=== PATIENT | male | born 1970 | race Two or more races ===

== ENCOUNTER 2025-04-12 13:43 | Inpatient (IN) | payer MEDICAID, OTHER ==
[~2025-04-12] VITALS: Ht 172.7 cm; Wt 91.3 kg
--- NOTE | 2025-04-12 14:11 | ECG ---
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
--- NOTE | 2025-04-12 14:23 | ED.PDOC ---
GI ASSESSMENT HPI Comments 55 y/o M, presents to the ED for CC of abdominal pain. 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 Patient relays, that he woke up asymptomatic and then symptoms came on suddenly. Patient denies recent change in diet, diarrhea, fever, chills, or constipation. No other symptoms or modifying factors are present at this time. Chief Complaint: Abdominal Pain Time Seen by MD: 14:00 Reviewed Notes: Nurses Notes, Medications, Allergies Allergies: Coded Allergies: NO KNOWN ALLERGIES (Unverified , 04/12/25) Mode of Arrival: Ambulatory Timing: Hours Duration: Since onset Prehospital treatment: None Vomitus: Watery Stool: Normal Severity: Moderate Recent: None Recent Hx of: None Pain Location: RLQ Modifying Factors: Nothing Associated sign and symptoms: Nausea, Vomiting, Abdominal Pain Past Medical History PAST MEDICAL HISTORY: Denies Surgical History: Denies all surgeries Family History Family History: Unknown Social History Lives In: Home Constitutional: denies: chills, diaphoresis, fatigue, fever, malaise, sweats, weakness, others EENTM: denies: blurred vision, double vision, ear bleeding, ear discharge, ear drainage, ear pain, ear ringing, eye pain, eye redness, hearing loss, mouth pain, mouth swelling, nasal discharge, nose bleeding, nose congestion, nose pain, photophobia, tearing, throat pain, throat swelling, voice changes, others Respiratory: denies: cough, hemoptysis, orthopnea, SOB at rest, shortness of breath, SOB with excertion, stridor, wheezing, others Cardiovascular: denies: chest pain, dizzy spells, diaphoresis, Dyspnea on exertion, edema, irregular heart beat, left arm pain, lightheadedness, palpitations, PND, syncope, others Gastrointestinal: reports: abdominal pain, nausea, vomiting; denies: abdomen distended, blood streaked bowels, constipated, diarrhea, dysphagia, difficulty swallowing, hematemesis, melena, poor appetite, poor fluid intake, rectal bleeding, rectal pain, others Genitourinary: denies: burning, dysuria, flank pain, frequency, hematuria, incontinence, penile discharge, penile sore, pain, testicle pain, testicle swelling, urgency, others Neurological: denies: dizziness, fainting, headache, left sided numbness, left sided weakness, numbness, paresthesia, pre-existing deficit, right sided numbness, right sided weakness, seizure, speech problems, tingling, tremors, weakness, others Musculoskeletal: denies: back pain, gout, joint pain, joint swelling, muscle pain, muscle stiffness, neck pain, others Integumetry: denies: bruises, change in color, change in hair/nails, dryness, laceration, lesions, lumps, rash, wounds, others Allergic/Immunocompromised: denies: Difficulty Healing, Frequent Infections, Hives, Itching, others Endocrine: denies: excessive hunger, excessive sweating, excessive thirst, excessive urination, flushing, intolerance to cold, intolerance to heat, unexplained weight gain, unexplained weight loss, others Psychiatric: denies: anxiety, bipolar disorder, depression, hopeless, panic disorder, schizophrenia, sleepless, suicidal, others All Other Systems: Reviewed and Negative Physical Exam General Appearance: Moderate Distress HEENT: Normal ENT Inspection, Pharynx Normal, TMs Normal Neck: Full Range of Motion, Non-Tender, Normal, Normal Inspection Respiratory: Chest Non-Tender, Lungs Clear, No Accessory Muscle Use, No Respiratory Distress, Normal Breath Sounds Cardiovascular: No Edema, No JVD, No Murmur, No Gallop, Normal Peripheral Pulses, Regular Rate/Rhythm Breast Exam: Deferred Gastrointestinal: Diffuse Genitalia: Deferred Pelvic: Deferred Rectal: Deferred Extremities: No calf tenderness, Normal capillary refill, Normal inspection, Normal range of motion, Non-tender, No pedal edema Musculoskeletal : Apperance: Normal 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 Was a procedure done?: No GI differential Dx Differential Diagnosis: Cholecystitis, Constipation, Diverticular disease, Esophagitis, Gastritis/PUD, Gastroenteritis, Inflammatory BD, UTI, Urolithiasis X-Ray, Labs, Meds, VS Vital Signs Date Time Temp Pulse Resp B/P (MAP) Pulse Ox O2 Delivery O2 Flow Rate FiO2 04/12/25 16:20 190/90 04/12/25 16:00 54 16 190/90 04/12/25 15:26 60 20 99 Room Air* 0 21 04/12/25 15:26 97.5 60 20 162/ (115) 99 97.5 04/12/25 15:19 60 20 162/92 04/12/25 13:58 60 04/12/25 13:45 61 22 214/94 100 Lab Test 04/12/25 15:00 04/12/25 14:43 Range/Units Urine Color Light-yellow Yellow Urine Clarity Clear Clear Urine pH 6.5 5.0-9.0 Urine Specific [place] 1.015 1.001-1.035 Urine Protein Negative Negative Urine Ketones 2+ H Negative Urine Blood 1+ H Negative /uL Urine Nitrite Negative Negative Urine Bilirubin Negative Negative Urine Urobilinogen Normal Negative mg/dL Urine Leukocyte Esterase Negative Negative /uL Urine RBC 39 0 - 3 /hpf Urine Microscopic WBC < 1 0-3 /HPF Urine Squamous Epithelial Cells None seen <5 /hpf Urine Bacteria None seen None Seen /hpf Urine Glucose Trace Normal mg/dL White Blood Count 12.8 H 4.4-10.8 10^3/uL Red Blood Count 5.19 4.5-5.90 10^6/uL Hemoglobin 15.1 13.5-17.5 g/dL Hematocrit 43.6 41.0-53.0 % Mean Corpuscular Volume 84.1 80.0-100.0 fL Mean Corpuscular Hemoglobin 29.1 28.0-32.0 pg Mean Corpuscular Hemoglobin Concent 34.5 32.0-36.0 g/dL Red Cell Distribution Width 13.4 11.8-14.3 % Platelet Count 277 140-450 10^3/uL Mean Platelet Volume 7.9 6.9-10.8 fL Neutrophils (%) (Auto) 81.7 H 37.0-80.0 % Lymphocytes (%) (Auto) 12.3 10.0-50.0 % Monocytes (%) (Auto) 5.6 0.0-12.0 % Eosinophils (%) (Auto) 0.1 0.0-7.0 % Basophils (%) (Auto) 0.3 0.0-2.0 % Neutrophils # (Auto) 10.5 H 1.6-8.6 10 ^3/uL Lymphocytes # (Auto) 1.6 0.4-5.4 10 ^3/uL Monocytes # (Auto) 0.7 0-1.3 10 ^3/uL Eosinophils # (Auto) 0 0-0.8 10 ^3/uL Basophils # (Auto) 0 0-0.2 10 ^3/uL Nucleated Red Blood Cells 0.0 % Sodium Level 142 136-145 mmol/L Potassium Level 3.1 L 3.5-5.1 mmol/L Chloride Level 104 98-107 mmol/L Carbon Dioxide Level 23 20-31 mmol/L Anion Gap 15 5-15 Blood Urea Nitrogen 21 9-23 mg/dL Creatinine 1.34 H 0.700-1.30 mg/dL Glomerular Filtration Rate Calc 62 >90 mL/min BUN/Creatinine Ratio 15.7 10.0-20.0 Serum Glucose 146 H 74-106 mg/dL Calcium Level 9.4 8.7-10.4 mg/dL Current Medications Medications (Trade) Dose Ordered Sig/Dirk Route Start Time Stop Time Status Last Admin Sodium Chloride 1,000 ml @ 1,000 mls/hr Q1H ONCE IV 04/12/25 14:30 04/12/25 15:29 DC 04/12/25 15:18 Hydromorphone HCl (Dilaudid Injection) 1 mg ONCE ONCE IV 04/12/25 14:30 04/12/25 14:31 DC 04/12/25 15:19 Ondansetron HCl (Zofran) 4 mg ONCE ONCE IV 04/12/25 14:30 04/12/25 14:31 DC 04/12/25 15:18 Clonidine HCl (Catapres Tablet) 0.2 mg ONCE ONCE PO 04/12/25 16:15 04/12/25 16:16 DC 04/12/25 16:20 [place] [id number] Ph: [phone] DIAGNOSTIC IMAGING Diagnostic Imaging Report : [id number] Signed PATIENT: ANA LILIA RASMUSSEN ACCT: [id number] UNIT: [id number] : 1970 LOC: ER ROOM / BED: / AGE / SEX: 55 / M ADM STATUS: REG ER SERVICE [id number] ORDERING PHYSICIAN: THUAN FLOWERS MD PROCEDURE(s): ABPL - CT AB PEL WO CON-NO ORAL OR IV REASON: llqpain ORDER NUMBER(s): [id number], ACCESSION NUMBER(s): [id number] Exam: CT CT AB PEL WO CON-NO ORAL OR IV History: llqpain Comparison Study: None TECHNIQUE: Multidetector CT of the abdomen AND PELVIS without IV contrast. Axial, coronal and sagittal multiplanar reformats were obtained from the axial data set by the technologist. Radiation Dose Information: CT Dose: CTDI volume is 15.2 mGy. Dose-length product is 907.59 mGy*cm FINDINGS: Bibasilar atelectasis. Partially visualized heart is unremarkable. Liver, spleen, gallbladder, pancreas and adrenal glands are unremarkable. Right renal lower pole parapelvic cyst measuring up to 2.7 cm. Moderate left [place] nephrosis with mild asymmetric left-sided perirenal and periureteral fat stranding and 2 mm obstructing calculus over the left distal ureter. Mild wall thickening of the mildly distended urinary bladder which may be due to in adequate distention. Prostate is unremarkable. Mild gaseous distention of the distal esophagus. The stomach is unremarkable. Small bowel loops unremarkable. Appendix is unremarkable. Mild wall thickening of the transverse colon. Sigmoid diverticulosis without diverticulitis. Mild rectal wall thickening. No evidence of intraperitoneal free air or free fluid. No evidence of aortic aneurysm or. No significant lymphadenopathy. Small fat containing bilateral inguinal hernias. Tiny fat containing umbilical hernia. The soft tissues unremarkable. No evidence of acute osseous abnormalities. IMPRESSION: Moderate left hydronephrosis with 2 mm obstructing calculus within the left distal ureter. Mild wall thickening of the urinary bladder which may be due to inadequate distention. Correlation with urinalysis is recommended to exclude cystitis. Mild wall thickening of the transverse colon and rectum which may be due to inadequate distention /mild colitis. Additional findings as above. ATED BY: MONSE YI DO DICTATED DATE/TIME: 04/12/25 1500 SIGNED BY: MONSE YI DO SIGNED DATE/TIME: 04/12/25 1500 CC: Patient alert. Complaining of abdominal pain. Vitals stable. Answering questions. CT scan of the abdomen is reveals kidney stone as well as colitis. Establish intravenous access. Was given fluids. Was given pain medication. Was given Rocephin. Was given Flagyl. Blood pressure elevated. Was given clonidine. Explained to the patient. Continue monitoring. Time of 1ST Reevaluation: 14:30 Reevaluation 1ST: Unchanged Patient Education/Counseling: Diagnosis, Treatment Family Education/Counseling: No Family Present SEPSIS Sepsis Screen Date sepsis recognized/suspect: Apr 12, 2025 Time Sepsis recognized/suspect: 1346 Recent Procedure: No On Antibiotic Therapy: No Respiratory Rate >20: Yes Heart Rate >90: No Temp<36 C (96.8 F) or >38.3 C: No SBP <90 or MAP <65 mmHG: No New Acute Mental Status Change: No Is the patient on CPAP, BIPAP,: No Physician Orders Ct Ab Pel Wo Con-No Oral Or Iv (04/12/25 14:18) Vital Signs Date Time Temp Pulse Resp B/P (MAP) Pulse Ox O2 Delivery O2 Flow Rate FiO2 04/12/25 16:20 190/90 04/12/25 16:00 54 16 190/90 04/12/25 15:26 60 20 99 Room Air* 0 21 04/12/25 15:26 97.5 60 20 162/92 (115) 99 97.5 04/12/25 15:19 60 20 162/92 04/12/25 13:58 60 04/12/25 13:45 61 22 214/94 100 Laboratory Tests Test 04/12/25 14:43 White Blood Count 12.8 10^3/uL (4.4-10.8) H Medications Medications Dose Ordered Sig/Dirk Route Start Time Stop Time Status Last Admin Dose Admin Clonidine HCl 0.2 mg ONCE ONCE PO 04/12/25 16:15 04/12/25 16:16 DC 04/12/25 16:20 Hydromorphone HCl 1 mg ONCE ONCE IV 04/12/25 14:30 04/12/25 14:31 DC 04/12/25 15:19 Ondansetron HCl 4 mg ONCE ONCE IV 04/12/25 14:30 04/12/25 14:31 DC 04/12/25 15:18 Sodium Chloride 1,000 ml @ 1,000 mls/hr Q1H ONCE IV 04/12/25 14:30 04/12/25 15:29 DC 04/12/25 15:18 Departure 1 Departure Time of Disposition: 16:13 Impression: Primary Impression: Acute abdominal pain Additional Impressions: Non-specific colitis Hypertensive urgency Kidney stone Disposition: ADMITTED INPATIENT Admit to: Med Surg Condition: Guarded Critical Care Note Critical Care Time?: No Stability Stability form required: No Heart Score Heart Score: Heart Score Response (Comments) Value History N/A 0 EKG N/A 0 Age N/A 0 Risk Factors N/A 0 Troponin N/A 0 Total 0 I personally scribed for THUAN FLOWERS MD ([email or web address]) on 04/12/25 at 14:23. Electronically submitted by Mel Barba ([email or web address]). I personally scribed for THUAN FLOWERS MD ([email or web address]) on 04/12/25 at 15:53. Electronically submitted by Mel Barba ([email or web address]). THUAN FLOWERS MD Apr 12, 2025 14:23
[2025-04-12 14:54] LABS: Hematocrit 43.6 % (41.0-53.0); Hemoglobin 15.1 g/dL (13.5-17.5); Mean Corpuscular Hemoglobin 29.1 pg (28.0-32.0); Mean Corpuscular Volume 84.1 fL (80.0-100.0); Nucleated Red Blood Cells % 0.0 %
[2025-04-12 15:03] LABS: Chloride 104 mmol/L (98-107); Sodium 142 mmol/L (136-145)
--- NOTE | 2025-04-12 15:03 | DVH ---
Exam: CT CT AB PEL WO CON-NO ORAL OR IV History: llqpain Comparison Study: None TECHNIQUE: Multidetector CT of the abdomen AND PELVIS without IV contrast. Axial, coronal and sagitta l multiplanar reformats were obtained from the axial data set by the technologist. Radiation Dose Information: CT Dose: CTDI volume is 15.2 mGy. Dose-length product is 907.59 mGy*cm FINDINGS: Bibasilar atelectasis. Partially visualized heart is unremarkable. Liver, spleen, gallbladder, pancreas and adrenal glands are unremarkable. Right renal lower pole parapelvic cyst measuring up to 2.7 cm. Moderate left [place] nephrosis with mil d asymmetric left-sided perirenal and periureteral fat stranding and 2 mm obstructing calculus over t he left distal ureter. Mild wall thickening of the mildly distended urinary bladder which may be due to inadequate distention. Prostate is unremarkable. Mild gaseous distention of the distal esophagus. The stomach is unremarkable. Small bowel loops unr emarkable. Appendix is unremarkable. Mild wall thickening of the transverse colon. Sigmoid diverticu losis without diverticulitis. Mild rectal wall thickening. No evidence of intraperitoneal free air or free fluid. No evidence of aortic aneurysm or. No significant lymphadenopathy. Small fat containing bilateral inguinal hernias. Tiny fat containing umbilical hernia. The soft tiss ues unremarkable. No evidence of acute osseous abnormalities. IMPRESSION: Moderate left hydronephrosis with 2 mm obstructing calculus within the left distal ureter. Mild wall thickening of the urinary bladder which may be due to inadequate distention. Correlation w ith urinalysis is recommended to exclude cystitis. Mild wall thickening of the transverse colon and rectum which may be due to inadequate distention /mi ld colitis. Additional findings as above.
[2025-04-12 15:04] LABS: Anion Gap 15 (5-15); Calcium 9.4 mg/dL (8.7-10.4); Carbon Dioxide 23 mmol/L (20-31); Potassium 3.1 mmol/L (3.5-5.1)
[2025-04-12 15:09] LABS: BUN/Creatinine Ratio 15.7 (10.0-20.0); Blood Urea Nitrogen 21 mg/dL (9-23); Glucose 146 mg/dL (74-106)
[2025-04-12] MEDS: ONDANSETRON HCL 4 MG/2 ML VIAL IV ONE (15:18)
[2025-04-12] MEDS: SODIUM CHLORIDE 0.9% 1,000 ML IV ONE ×3 (15:18→23:37)
[2025-04-12] MEDS: HYDROmorphone HCL 2 MG/ML VL/or syr IV ONE ×2 (15:19→23:37)
[2025-04-12 15:20] LABS: Urine Protein, UAD Negative (Negative)
[2025-04-12 15:26] VITALS: PULSE 60; RESP 20; O2SAT 99
--- NOTE | 2025-04-12 21:29 | DVHHPRES ---
History of Present Illness Resident Creating Document: OMID BARNARD History of Present Illness Mr. Shearer is a 55 year old male with no prior medical history, who presents today accompanied by his with chief complaint of abdominal pain. The patient refers sudden onset of sharp pain in LLQ, which radiates down towards left groin, 10/10 intensity, associated with chills, diaphoresis, nausea, vomiting, and vomiting, with no aggravating or relieving factors. The patient denies fever, palpitations, hematuria, dysuria, and chest pain. Due to persistence of symptoms he sought medical attention at the emergency department. On evaluation in the ED, the patient was in moderate distress, afebrile, and hypertensive. Initial labs show leukocytosis with neutrophilia, hypokalemia, creatinine 1.34, and hyperglycemia. UA is significant for microscopic hematuria. Abdominal CT shows moderate left hydronephrosis with 2 mm obstructing calculus within the left distal ureter. The patient was started on IV fluids, IV Zofran, and IV antibiotics. He was admitted for further workup and management. Prior medical history: Denies Surgical history: Denies Allergies: Seasonal Social: Denies drug and tobacco use. Refers occasional alcohol use. Lives with his and he feels safe. Review of Systems Review of Systems Constitutional: Refers chills and diaphoresis, Denies weight loss, fever. HEENT: Denies changes in vision and hearing. Respiratory: Denies shortness of breath and cough Cardiovascular: Denies chest discomfort or palpitations GI: Refers abdominal pain, nausea, vomiting, Denies abdominal distention, diarrhea : Denies dysuria and urinary frequency. Musculoskeletal: Denies symptoms Skin: Denies rash and pruritus. Neurological: denies dizziness headache vision or hearing problems Allergies: Coded Allergies: NO KNOWN ALLERGIES (Unverified , 04/12/25) Exam Vital Signs Vital Signs Date Time Temp Pulse Resp B/P (MAP) Pulse Ox O2 Delivery O2 Flow Rate FiO2 04/12/25 19:54 98.0 60 18 197/106 (136) 97 98.0 04/12/25 15:26 Room Air* 0 21 Exam General: The patient alert and oriented in person place and time. Patient following commands, patient in pain and vomiting HEENT: Normocephalic, atraumatic, normal reactive pupils, EOM intact, pink conjunctiva, pink dry mucous membrane Respiratory/pulmonary: Bilateral chest expansion, no pain on palpation of chest wall, clear lungs bilaterally, vesicular murmurs present in almost all lung mo, no associated crackles or wheezes. Cardiovascular: Normal RRR, normal S1 and S2, no murmurs Abdomen: Obese, Abdomen nondistended, normal bowel sounds, soft, pain on palpation of lower left quadrant, no CVA tenderness, no palpable masses. Extremities: No deformities, there is no peripheral edema present at the lower extremities, normal pulses Skin: No rashes or pruritus, there is no sacral edema present at this time. Neurological: Intact cranial nerves with no focal neurologic deficits Labs/Xrays Labs Test 04/12/25 15:00 04/12/25 14:43 Range/Units Urine Color Light-yellow Yellow Urine Clarity Clear Clear Urine pH 6.5 5.0-9.0 Urine Specific [place] 1.015 1.001-1.035 Urine Protein Negative Negative Urine Ketones 2+ H Negative Urine Blood 1+ H Negative /uL Urine Nitrite Negative Negative Urine Bilirubin Negative Negative Urine Urobilinogen Normal Negative mg/dL Urine Leukocyte Esterase Negative Negative /uL Urine RBC 39 0 - 3 /hpf Urine Microscopic WBC < 1 0-3 /HPF Urine Squamous Epithelial Cells None seen <5 /hpf Urine Bacteria None seen None Seen /hpf Urine Glucose Trace Normal mg/dL White Blood Count 12.8 H 4.4-10.8 10^3/uL Red Blood Count 5.19 4.5-5.90 10^6/uL Hemoglobin 15.1 13.5-17.5 g/dL Hematocrit 43.6 41.0-53.0 % Mean Corpuscular Volume 84.1 80.0-100.0 fL Mean Corpuscular Hemoglobin 29.1 28.0-32.0 pg Mean Corpuscular Hemoglobin Concent 34.5 32.0-36.0 g/dL Red Cell Distribution Width 13.4 11.8-14.3 % Platelet Count 277 140-450 10^3/uL Mean Platelet Volume 7.9 6.9-10.8 fL Neutrophils (%) (Auto) 81.7 H 37.0-80.0 % Lymphocytes (%) (Auto) 12.3 10.0-50.0 % Monocytes (%) (Auto) 5.6 0.0-12.0 % Eosinophils (%) (Auto) 0.1 0.0-7.0 % Basophils (%) (Auto) 0.3 0.0-2.0 % Neutrophils # (Auto) 10.5 H 1.6-8.6 10 ^3/uL Lymphocytes # (Auto) 1.6 0.4-5.4 10 ^3/uL Monocytes # (Auto) 0.7 0-1.3 10 ^3/uL Eosinophils # (Auto) 0 0-0.8 10 ^3/uL Basophils # (Auto) 0 0-0.2 10 ^3/uL Nucleated Red Blood Cells 0.0 % Sodium Level 142 136-145 mmol/L Potassium Level 3.1 L 3.5-5.1 mmol/L Chloride Level 104 98-107 mmol/L Carbon Dioxide Level 23 20-31 mmol/L Anion Gap 15 5-15 Blood Urea Nitrogen 21 9-23 mg/dL Creatinine 1.34 H 0.700-1.30 mg/dL Glomerular Filtration Rate Calc 62 >90 mL/min BUN/Creatinine Ratio 15.7 10.0-20.0 Serum Glucose 146 H 74-106 mg/dL Calcium Level 9.4 8.7-10.4 mg/dL SEPSIS Sepsis Screen Date sepsis recognized/suspect: Apr 12, 2025 Time Sepsis recognized/suspect: 1347 Recent Procedure: No On Antibiotic Therapy: No Respiratory Rate >20: Yes Heart Rate >90: No Temp<36 C (96.8 F) or >38.3 C: No SBP <90 or MAP <65 mmHG: No New Acute Mental Status Change: No Is the patient on CPAP, BIPAP,: No Physician Orders Ct Ab Pel Wo Con-No Oral Or Iv (04/12/25 14:18) Admit (04/12/25 21:20) Allergies (04/12/25 21:20) Code Status (04/12/25 21:20) Complete Blood Count (04/13/25 04:00) Npo (Nothing By Mouth) Diet (04/13/25 Breakfast) Condition: Stable (04/12/25 21:20) Stat Ekg For Chest Pain (04/12/25 21:20) Notify Md Of Changes From Base (04/12/25 21:20) Emergency Dysrhythmia Protocol (04/12/25 21:20) Rhythm Strips Once Every Shift (04/12/25 21:20) Blood Culture (04/12/25 21:20) Hepatic Panel (04/12/25 21:20) Hemoglobin A1c (04/12/25 21:20) * Urology Consult (04/12/25 21:20) Strain All Urine For Stones (04/12/25 21:20) Lactic Acid W/ Reflex Order (04/12/25 21:20) Phosphorus (04/12/25 21:20) Thyroid Stimulating Hormone (04/12/25 21:20) Vitamin D, 25-Hydroxy (04/12/25 21:20) Vitamin B12 (04/12/25 21:20) Magnesium (04/12/25 21:20) PTPTT (04/12/25 21:20) Tamsulosin Hydrochloride (Flomax) (04/13/25 18:00) Tamsulosin Hydrochloride (Flomax) (04/12/25 21:30) Ceftriaxone Ivpb Rocephin (04/12/25 21:30) Ceftriaxone Ivpb Rocephin (04/13/25 09:00) NS (04/12/25 21:30) NS (04/12/25 21:30) Hydromorphone Injection (Dilaudid Inject (04/12/25 21:30) Hydromorphone Injection (Dilaudid Inject (04/12/25 21:30) Sequential Compression Device (04/12/25 21:29) Vital Signs Date Time Temp Pulse Resp B/P (MAP) Pulse Ox O2 Delivery O2 Flow Rate FiO2 04/12/25 19:54 98.0 60 18 197/106 (136) 97 98.0 04/12/25 16:20 190/90 04/12/25 16:00 54 16 190/90 04/12/25 15:26 60 20 99 Room Air* 0 21 04/12/25 15:26 97.5 60 20 162/92 (115) 99 97.5 04/12/25 15:19 60 20 162/92 04/12/25 13:58 60 04/12/25 13:45 61 22 214/94 100 Laboratory Tests Test 04/12/25 14:43 White Blood Count 12.8 10^3/uL (4.4-10.8) H Medications Medications Dose Ordered Sig/Dirk Route Start Time Stop Time Status Last Admin Dose Admin Clonidine HCl 0.2 mg ONCE ONCE PO 04/12/25 16:15 04/12/25 16:16 DC 04/12/25 16:20 0.2 MG Hydromorphone HCl 1 mg ONCE ONCE IV 04/12/25 14:30 04/12/25 14:31 DC 04/12/25 15:19 1 MG Ondansetron HCl 4 mg ONCE ONCE IV 04/12/25 14:30 04/12/25 14:31 DC 04/12/25 15:18 4 MG Sodium Chloride 1,000 ml @ 1,000 mls/hr Q1H ONCE IV 04/12/25 14:30 04/12/25 15:29 DC 04/12/25 15:18 1,000 MLS/HR Assessment/Plan Assessment/Plan Assessment and Plan: Sepsis secondary to Complicated UTI likely secondary to ureterolithiasis - Blood cultures ordered - NS 1000 cc bolus x 3 - Ceftriaxone 1 g IV daily - Blood cultures have been ordered - Urine culture has been ordered - Lactic Acid: 2.7 -> 2.9 Intractable abdominal pain due to Obstructing ureterolithiasis with bilateral hydronephrosis Intractable nausea and vomiting due to above - Abdominal CT: Moderate left hydronephrosis with 2 mm obstructing calculus within the left distal ureter. - Renal ultrasound: Mild right and moderate hydronephrosis - Roach catheter placement - Urology has been consulted - IV fluids - NS maintenance 75 cc/hr - Tamsulosin 0.4 mg p.o. 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 Camarena Goals of care were discussed with the patient and his at bedside for over 28 minutes. Full code. Plan discussed with: Patient, Spouse, Other My Orders Orders - OMID BANRARD RESIDENT Procedure Category Date Status Time Admit ADMIT 04/12/25 Transmitted 21:20 Allergies MISBAH 10/16/25 Transmitted 21:20 Code Status CODE 04/12/25 Transmitted 21:20 Complete Blood Count LAB 04/13/25 Verified 04:00 Npo (Nothing By DIET 04/13/25 Transmitted Mouth) Diet Breakfast Condition: Stable [facility] 04/12/25 Transmitted 21:20 Stat Ekg For Chest MISBAH 04/12/25 Transmitted Pain 21:20 Notify Md Of Changes [facility] 04/12/25 Transmitted From Base 21:20 Emergency Dysrhythmia [facility] 04/12/25 Transmitted Protocol 21:20 Rhythm Strips Once [facility] 04/12/25 Transmitted Every Shift 21:20 Blood Culture PATIENCE 04/12/25 Transmitted 21:20 Hepatic Panel LAB 04/12/25 Transmitted 21:20 Hemoglobin A1c LAB 04/12/25 Transmitted 21:20 * Urology Consult CONS 04/12/25 Transmitted 21:20 Strain All Urine For [facility] 04/12/25 Transmitted Stones 21:20 Lactic Acid W/ Reflex LAB 04/12/25 Transmitted Order 21:20 Phosphorus LAB 04/12/25 Transmitted 21:20 Thyroid Stimulating LAB 04/12/25 Transmitted Hormone 21:20 Vitamin D, 25-Hydroxy LAB 04/12/25 Transmitted 21:20 Vitamin B12 LAB 04/12/25 Transmitted 21:20 Magnesium LAB 04/12/25 Transmitted 21:20 PTPTT LAB 04/12/25 Transmitted 21:20 Tamsulosin PHA 04/13/25 Transmitted Hydrochloride (Flomax) 18:00 Tamsulosin PHA 04/12/25 Transmitted Hydrochloride (Flomax) 21:30 Ceftriaxone Ivpb PHA 04/12/25 Transmitted Rocephin 21:30 Ceftriaxone Ivpb PHA 04/13/25 Transmitted Rocephin 09:00 NS PHA 04/12/25 Transmitted 21:30 NS PHA 04/12/25 Transmitted 21:30 Hydromorphone PHA 04/12/25 Transmitted Injection (Dilaudid 21:30 Hydromorphone PHA 04/12/25 Transmitted Injection (Dilaudid 21:30 Sequential [facility] 04/12/25 Verified Compression Device 21:29 Date of Service: Apr 12, 2025 Billing Provider: SHANNON CAMARENA MD Common Visit Codes: 70943-[id number] INP/OBS CARE (HIGH) Secondary Visit Codes: [id number] CARE PLAN 30 MINUTES OMID BARNARD RESIDENT Apr 12, 2025 21:29 BOOM FLEMING RESIDENT Apr 13, 2025 05:28
[2025-04-12] MEDS ORDERED: HYDROmorphone HCL 2 MG/ML VL/or syr IV PRN (21:30)
[2025-04-12] MEDS ORDERED: SODIUM CHLORIDE 0.9% 1,000 ML IV SCH (21:30)
[2025-04-12 22:11] LABS: Albumin 4.8 g/dL (3.2-4.8); Alkaline Phosphatase 98.0 U/L (46-116); Bilirubin, Direct 0.2 mg/dL (<0.3); Bilirubin, Total 0.5 mg/dL (0.2-1.0); Magnesium 2.0 mg/dL (1.6-2.6); Total Protein 7.4 g/dL (5.7-8.2)
[2025-04-12 22:14] LABS: Alanine Aminotransferase 50.0 U/L (7-40)
[2025-04-12 23:02] LABS: INR 1.14 (0.9-1.15); Partial Thromboplastin Time 25.6 SEC (24.5-34.5); Prothrombin Time 11.9 sec (9.3-11.8)
--- NOTE | 2025-04-12 23:05 | DVH ---
RENAL ULTRASOUND CLINICAL HISTORY: L Hydronephrosis TECHNIQUE: Multiple grayscale ultrasound images were obtained through the kidneys and urinary bladder . COMPARISON: CT abdomen and pelvis from same day FINDINGS: Right kidney: Measures 10.6 cm. Mild hydronephrosis. Left kidney: Measures 12.2 cm. Moderate hydronephrosis. Urinary bladder: Unremarkable. Prevoid volume is 67.3 ML. The right ureteral jet is seen. The left ur eteral jet was not visualized. IMPRESSION: Mild right and moderate left hydronephrosis.
[2025-04-12 23:15] LABS: Lactic Acid w/Reflex 2.7 mmol/L (0.4-2.0)
[2025-04-12] MEDS: hydrALAZINE HCL 20 MG/ML VL IV ONE (23:36)
[2025-04-12] MEDS: TAMSULOSIN HYDROCHLORIDE 0.4 MG CAP PO ONE (23:46)
[2025-04-13] VITALS (12 sets, daily range): BP systolic 139–162; BP diastolic 64–100; PULSE 67–97; RESP 12–18; TEMP 98–98.6; O2SAT 94–98
[2025-04-13] MEDS: POTASSIUM CHLORIDE 60 MEQ, LIDOCAINE 1% (LOCAL ANESTH.) 6 ML in SODIUM CHL 0.9% 500 ML IV ONE (00:49)
[2025-04-13] MEDS: SODIUM CHLORIDE 0.9% 500 ML IV ONE (05:30)
[2025-04-13 06:05] LABS: Hematocrit 42.4 % (41.0-53.0); Hemoglobin 14.7 g/dL (13.5-17.5); Mean Corpuscular Hemoglobin 29.0 pg (28.0-32.0); Mean Corpuscular Volume 83.5 fL (80.0-100.0); Nucleated Red Blood Cells % 0.0 %
[2025-04-13 06:24] LABS: Alanine Aminotransferase 40 U/L (7-40); Albumin 4.6 g/dL (3.2-4.8); Alkaline Phosphatase 90 U/L (46-116); Anion Gap 15 (5-15); BUN/Creatinine Ratio 12.9 (10.0-20.0); Bilirubin, Total 0.6 mg/dL (0.2-1.0); Blood Urea Nitrogen 15 mg/dL (9-23); Calcium 8.8 mg/dL (8.7-10.4); Carbon Dioxide 21 mmol/L (20-31); Chloride 105 mmol/L (98-107); Glucose 127 mg/dL (74-106); Potassium 3.8 mmol/L (3.5-5.1); Sodium 141 mmol/L (136-145); Total Protein 7.3 g/dL (5.7-8.2)
[2025-04-13] MEDS: ONDANSETRON HCL 4 MG/2 ML VIAL IV PRN (08:49)
[2025-04-13] MEDS: HYDROmorphone HCL 2 MG/ML VL/or syr IV PRN (08:50)
[2025-04-13 10:16] LABS: Opiate Scree,Urine Neg (NEGATIVE)
[2025-04-13 10:17] LABS: Amphetamine Screen, Urine Neg (NEGATIVE); Barbiturate Scree,Urine Neg (NEGATIVE); Benzodiazephine Screen, Urine Neg (NEGATIVE); Cannabinoid Screen, Urine Neg (NEGATIVE); Cocaine Screen, Urine Neg (NEGATIVE); Phencyclidine Screen, Urine Neg (NEGATIVE)
--- NOTE | 2025-04-13 10:21 | DVHINCON2 ---
Date of service: Apr 13, 2025 Referring Physician Hospitalist Reason for Consultation Moderate left hydronephrosis 2 mm obstructing left ureteral stone Azotemia History of Present Illness 55 y/o M, presents to the ED for CC of abdominal pain. Patient states, he has been experencing sudden RLQ abdominal pain with associated nausea and vomiting [id number] [employer]ING[employer]. Patient relays, that he woke up asymptomatic and then symptoms came on suddenly. Patient denies recent change in diet, diarrhea, fever, chills, or constipation. No other symptoms or modifying factors are present at this time. Chief Complaint: Abdominal Pain Reviewed Notes: Nurses Notes, Medications, Allergies Allergies: Coded Allergies: NO KNOWN ALLERGIES (Unverified , 04/12/25) Mode of Arrival: Ambulatory Timing: Hours Duration: Since onset Prehospital treatment: None Vomitus: Watery Stool: Normal Severity: Moderate Recent: None Recent Hx of: None Pain Location: RLQ Modifying Factors: Nothing Associated sign and symptoms: Nausea, Vomiting, Abdominal Pain Past Medical History Denies Allergies: Coded Allergies: NO KNOWN ALLERGIES (Unverified , 04/12/25) Current Medications Current Medications Medications (Trade) Dose Ordered Sig/Dirk Route PRN Reason Start Time Stop Time Status Last Admin Tamsulosin HCl (Flomax) 0.4 mg QPM PO 04/13/25 18:00 Ceftriaxone Sodium 50 ml @ 100 mls/hr Q24H IV 04/13/25 21:00 Sodium Chloride 1,000 ml @ 75 mls/hr [id number] IV 04/12/25 21:30 04/13/25 05:23 DC Hydromorphone HCl (Dilaudid Injection) 0.25 mg Q4HPRN PRN IV MODERATE PAIN (4-6 PAIN SCALE) 04/12/25 21:30 04/13/25 05:22 DC Ondansetron HCl (Zofran) 4 mg Q4HPRN PRN IV NAUSEA / VOMITING 04/12/25 21:45 04/13/25 08:49 Hydromorphone HCl (Dilaudid Injection) 0.5 mg Q4HPRN PRN IV SEVERE PAIN (7-10 PAIN SCALE) 04/13/25 05:30 04/13/25 08:50 Sodium Chloride 1,000 ml @ 100 mls/hr Q10H IV 04/13/25 05:30 Lisinopril (Zestril Tablet) 5 mg DAILY PO 04/13/25 10:00 Review of Systems Constitutional: denies: chills, diaphoresis, fatigue, fever, malaise, sweats, weakness, others EENTM: denies: blurred vision, double vision, ear bleeding, ear discharge, ear drainage, ear pain, ear ringing, eye pain, eye redness, hearing loss, mouth pain, mouth swelling, nasal discharge, nose bleeding, nose congestion, nose pain, photophobia, tearing, throat pain, throat swelling, voice changes, others Respiratory: denies: cough, hemoptysis, orthopnea, SOB at rest, shortness of breath, SOB with excertion, stridor, wheezing, others Cardiovascular: denies: chest pain, dizzy spells, diaphoresis, Dyspnea on exertion, edema, irregular heart beat, left arm pain, lightheadedness, palpitations, PND, syncope, others Gastrointestinal: reports: abdominal pain, nausea, vomiting; denies: abdomen distended, blood streaked bowels, constipated, diarrhea, dysphagia, difficulty swallowing, hematemesis, melena, poor appetite, poor fluid intake, rectal bleeding, rectal pain, others Genitourinary: denies: burning, dysuria, flank pain, frequency, hematuria, incontinence, penile discharge, penile sore, pain, testicle pain, testicle swelling, urgency, others Neurological: denies: dizziness, fainting, headache, left sided numbness, left sided weakness, numbness, paresthesia, pre-existing deficit, right sided numbness, right sided weakness, seizure, speech problems, tingling, tremors, weakness, others Musculoskeletal: denies: back pain, gout, joint pain, joint swelling, muscle pain, muscle stiffness, neck pain, others Integumetry: denies: bruises, change in color, change in hair/nails, dryness, laceration, lesions, lumps, rash, wounds, others Allergic/Immunocompromised: denies: Difficulty Healing, Frequent Infections, Hives, Itching, others Endocrine: denies: excessive hunger, excessive sweating, excessive thirst, excessive urination, flushing, intolerance to cold, intolerance to heat, unexplained weight gain, unexplained weight loss, others Psychiatric: denies: anxiety, bipolar disorder, depression, hopeless, panic disorder, schizophrenia, sleepless, suicidal, others All Other Systems: Reviewed and Negative Vital Signs Vital Signs Date Time Temp Pulse Resp B/P (MAP) Pulse Ox O2 Delivery O2 Flow Rate FiO2 04/13/25 08:50 96 20 154/90 04/13/25 08:00 95 Room Air* 0 21 04/13/25 08:00 98.2 98.2 Physical Exam General Appearance: Moderate Distress HEENT: Normal ENT Inspection, Pharynx Normal, TMs Normal Neck: Full Range of Motion, Non-Tender, Normal, Normal Inspection Respiratory: Chest Non-Tender, Lungs Clear, No Accessory Muscle Use, No Respiratory Distress, Normal Breath Sounds Cardiovascular: No Edema, No JVD, No Murmur, No Gallop, Normal Peripheral Pulses, Regular Rate/Rhythm Breast Exam: Deferred Gastrointestinal: Diffuse Genitalia: Deferred Pelvic: Deferred Rectal: Deferred Extremities: No calf tenderness, Normal capillary refill, Normal inspection, Normal range of motion, Non-tender, No pedal edema Musculoskeletal : Apperance: Normal Neurologic: Alert, cigarette vendor II-XII nml as Tested, No Motor Deficits, Normal Affect, Normal Mood, No Sensory Deficits Cerebellar Function: Normal Reflexes: Normal Skin: Dry, Normal Color, Warm Peripheral Pulses: 3+ Radial (R), 3+ Radial (L) Lymphatic: No Adenopathy Labs/Diagnostic Data Labs Test 04/13/25 09:36 04/13/25 06:42 04/13/25 05:22 04/12/25 21:57 Range/Units Lactic Acid Level 0.9 0.4-2.0 mmol/L White Blood Count 13.7 H 4.4-10.8 10^3/uL Red Blood Count 5.08 4.5-5.90 10^6/uL Hemoglobin 14.7 13.5-17.5 g/dL Hematocrit 42.4 41.0-53.0 % Mean Corpuscular Volume 83.5 80.0-100.0 fL Mean Corpuscular Hemoglobin 29.0 28.0-32.0 pg Mean Corpuscular Hemoglobin Concent 34.8 32.0-36.0 g/dL Red Cell Distribution Width 13.5 11.8-14.3 % Platelet Count 268 140-450 10^3/uL Mean Platelet Volume 8.4 6.9-10.8 fL Neutrophils (%) (Auto) 82.4 H 37.0-80.0 % Lymphocytes (%) (Auto) 7.9 L 10.0-50.0 % Monocytes (%) (Auto) 9.6 0.0-12.0 % Eosinophils (%) (Auto) 0.0 0.0-7.0 % Basophils (%) (Auto) 0.1 0.0-2.0 % Neutrophils # (Auto) 11.3 H 1.6-8.6 10 ^3/uL Lymphocytes # (Auto) 1.1 0.4-5.4 10 ^3/uL Monocytes # (Auto) 1.3 0-1.3 10 ^3/uL Eosinophils # (Auto) 0 0-0.8 10 ^3/uL Basophils # (Auto) 0 0-0.2 10 ^3/uL Nucleated Red Blood Cells 0.0 % Sodium Level 141 136-145 mmol/L Potassium Level 3.8 3.5-5.1 mmol/L Chloride Level 105 98-107 mmol/L Carbon Dioxide Level 21 20-31 mmol/L Anion Gap 15 5-15 Blood Urea Nitrogen 15 9-23 mg/dL Creatinine 1.16 0.700-1.30 mg/dL Glomerular Filtration Rate Calc 74 >90 mL/min BUN/Creatinine Ratio 12.9 10.0-20.0 Serum Glucose 127 H 74-106 mg/dL Calcium Level 8.8 8.7-10.4 mg/dL Total Bilirubin 0.6 0.2-1.0 mg/dL Aspartate Amino Transferase (AST) 31 13-40 U/L Alanine Aminotransferase (ALT) 40 7-40 U/L Alkaline Phosphatase 90 46-116 U/L Total Protein 7.3 5.7-8.2 g/dL Albumin 4.6 3.2-4.8 g/dL Prothrombin Time 11.9 H 9.3-11.8 sec Prothrombin Time INR 1.14 0.9-1.15 Activated Partial Thromboplast Time 25.6 24.5-34.5 SEC Test 04/12/25 15:00 04/12/25 14:43 Range/Units Urine Color Light-yellow Yellow Urine Clarity Clear Clear Urine pH 6.5 5.0-9.0 Urine Specific [place] 1.015 1.001-1.035 Urine Protein Negative Negative Urine Ketones 2+ H Negative Urine Blood 1+ H Negative /uL Urine Nitrite Negative Negative Urine Bilirubin Negative Negative Urine Urobilinogen Normal Negative mg/dL Urine Leukocyte Esterase Negative Negative /uL Urine RBC 39 0 - 3 /hpf Urine Microscopic WBC < 1 0-3 /HPF Urine Squamous Epithelial Cells None seen <5 /hpf Urine Bacteria None seen None Seen /hpf Urine Glucose Trace Normal mg/dL Hemoglobin A1c 5.4 <5.7 % A1C Phosphorus Level 2.7 2.4-5.1 mg/dL Magnesium Level 2.0 1.6-2.6 mg/dL Direct Bilirubin 0.2 <0.3 mg/dL Vitamin B12 Level 651 211-911 pg/mL Vitamin D 25-Hydroxy 30.4 30.0-100 ng/mL Thyroid Stimulating Hormone (TSH) 2.94 0.55-4.78 uIU/mL PATIENT: ANA LILIA RASMUSSEN ACCT: [id number] UNIT: [id number] : 1970 LOC: ER ROOM / BED: / AGE / SEX: 55 / M ADM STATUS: REG ER SERVICE [id number] ORDERING PHYSICIAN: THUAN FLOWERS MD PROCEDURE(s): ABPL - CT AB PEL WO CON-NO ORAL OR IV REASON: llqpain ORDER NUMBER(s): [id number], ACCESSION NUMBER(s): [id number] Exam: CT CT AB PEL WO CON-NO ORAL OR IV History: llqpain Comparison Study: None TECHNIQUE: Multidetector CT of the abdomen AND PELVIS without IV contrast. Axial, coronal and sagittal multiplanar reformats were obtained from the axial d mackenzie set by the technologist. Radiation Dose Information: CT Dose: CTDI volume is 15.2 mGy. Dose-length product is 907.59 mGy*cm FINDINGS: Bibasilar atelectasis. Partially visualized heart is unremarkable. Liver, spleen, gallbladder, pancreas and adrenal glands are unremarkable. Right renal lower pole parapelvic cyst measuring up to 2.7 cm. Moderate left Burdett nephrosis with mild asymmetric left-sided perirenal and periureteral fat stranding and 2 mm obstructing calculus over the left distal ureter. Mild wall thickening of the mildly distended urinary bladder which may be due to inadequate distention. Prostate is unremarkable. Mild gaseous distention of the distal esophagus. The stomach is unremarkable. Small bowel loops unremarkable. Appendix is unremarkable. Mild wall thickening of the transverse colon. Sigmoid diverticulosis without diverticulitis. Mild rectal wall thickening. No evidence of intraperitoneal free air or free fluid. No evidence of aortic aneurysm or. No significant lymphadenopathy. Small fat containing bilateral inguinal hernias. Tiny fat containing umbilical hernia. The soft tissues unremarkable. No evidence of acute osseous abnormalities. IMPRESSION: Moderate left hydronephrosis with 2 mm obstructing calculus within the left distal ureter. Mild wall thickening of the urinary bladder which may be due to inadequate distention. Correlation with urinalysis is recommended to exclude cystitis. Mild wall thickening of the transverse colon and rectum which may be due to inadequate distention /mild colitis. Additional findings as above. ATED BY: MONSE YI DO DICTATED DATE/TIME: 04/12/25 1500 SIGNED BY: MONSE YI DO SIGNED DATE/TIME: 04/12/25 1500 CC: Assessment Left hydronephrosis due to 2 mm left mid ureteral stone Azotemia Microhematuria Plan/Recommendation Left PNT placement per IR service Expulsive measures Plan discussed with: Patient, Spouse, Other LACHO RODRIGUEZ MD Apr 13, 2025 10:21
[2025-04-13] MEDS: LISINOPRIL 5 MG TAB PO SCH (11:52)
[2025-04-13] MEDS: MANNITOL FTV 25% 12.5 GM/50 ML 50 ML IV ONE (12:12)
[2025-04-13] MEDS: SODIUM CHLORIDE 0.9% 1,000 ML IV SCH (12:28)
[2025-04-13] MEDS: IODIXANOL 320MG/ML 100ML BTL IV ONE (12:31)
[2025-04-13] MEDS: fentaNYL CITRATE 100 MCG/2 ML VL ONE (12:43)
[2025-04-13] MEDS: LIDOCAINE 2%HCL (LOCAL ANESTH.) INJ 20ML MDV ONE (12:43)
[2025-04-13] MEDS: MIDAZOLAM HCL 2MG/2ML 2ml VIAL (1mg/ml) ONE (12:43)
--- NOTE | 2025-04-13 14:30 | DVHPNRES ---
Progress Note Date Seen: Apr 13, 2025 Resident Creating Document: GAUTAM RANGEL RESIDENT Medical Necessity Reason Pt with a Central, PICC or Fol: No Subjective Review of Systems Mr. Shearer is a 55 year old male with no prior medical history, who presents today accompanied by his with chief complaint of abdominal pain. The patient refers sudden onset of sharp pain in LLQ, which radiates down towards left groin, 10/10 intensity, associated with chills, diaphoresis, nausea, vomiting, and vomiting, with no aggravating or relieving factors. The patient denies fever, palpitations, hematuria, dysuria, and chest pain. Due to persistence of symptoms he sought medical attention at the emergency department. On evaluation in the ED, the patient was in moderate distress, afebrile, and hypertensive. Initial labs show leukocytosis with neutrophilia, hypokalemia, creatinine 1.34, and hyperglycemia. UA is significant for microscopic hematuria. Abdominal CT shows moderate left hydronephrosis with 2 mm obstructing calculus within the left distal ureter. The patient was started on IV fluids, IV Zofran, and IV antibiotics. He was admitted for further workup and management. Prior medical history: Denies Surgical history: Denies Allergies: Seasonal Social: Denies drug and tobacco use. Refers occasional alcohol use. Lives with his and he feels safe. Patient was seen and examined at bedside. Overnight events were reviewed. The patient reports feeling hungry and improvement in his pain from admission. He denies any chest pain, shortness of breath, fever or any other complaints. Objective vital signs Vital Sign Date Time Temp Pulse Resp B/P (MAP) Pulse Ox O2 Delivery O2 Flow Rate FiO2 04/13/25 14:05 98.4 71 12 154/90 (111) 94 98.4 04/13/25 08:00 Room Air* 0 21 Total Intake and Output 04/12/25 04/12/25 04/13/25 15:00 23:00 07:00 Intake Total 1000 ml Output Total 2200 ml Balance 1000 ml -2200 ml medications Current Medications Medications Dose Ordered Sig/Dirk Route Start Time Stop Time Status Last Admin Dose Admin Tamsulosin HCl 0.4 mg QPM PO 04/13/25 18:00 Ceftriaxone Sodium 50 ml @ 100 mls/hr Q24H IV 04/13/25 21:00 Ondansetron HCl 4 mg Q4HPRN PRN IV 04/12/25 21:45 04/13/25 08:49 4 MG Hydromorphone HCl 0.5 mg Q4HPRN PRN IV 04/13/25 05:30 04/13/25 08:50 0.5 MG Sodium Chloride 1,000 ml @ 100 mls/hr Q10H IV 04/13/25 05:30 Lisinopril 5 mg DAILY PO 04/13/25 10:00 04/13/25 11:52 5 MG Examination Exam General: The patient alert and oriented in person place and time. Patient following commands, patient in pain and vomiting HEENT: Normocephalic, atraumatic, normal reactive pupils, EOM intact, pink conjunctiva, pink dry mucous membrane Respiratory/pulmonary: Bilateral chest expansion, no pain on palpation of chest wall, clear lungs bilaterally, vesicular murmurs present in almost all lung mo, no associated crackles or wheezes. Cardiovascular: Normal RRR, normal S1 and S2, no murmurs Abdomen: Obese, Abdomen nondistended, normal bowel sounds, soft, pain on palpation of lower left quadrant, no CVA tenderness, no palpable masses. Extremities: No deformities, there is no peripheral edema present at the lower extremities, normal pulses Skin: No rashes or pruritus, there is no sacral edema present at this time. Neurological: Intact cranial nerves with no focal neurologic deficits laboratory and microbiology Laboratory Tests 04/13/25 05:22 Test 04/13/25 05:22 Range/Units Serum Glucose 127 H 74-106 mg/dL Labs and/or images reviewed: Labs reviewed by me, Image(s) reviewed by me Problem List/Assessment/Plan Problem List/Assessment/Plan Sepsis secondary to Complicated UTI likely secondary to ureterolithiasis - Blood cultures ordered - NS 1000 cc bolus x 3 - Ceftriaxone 1 g IV daily - Blood cultures have been ordered - Urine culture has been ordered - Lactic Acid: 2.7 -> 2.9 Intractable abdominal pain due to Obstructing ureterolithiasis with bilateral hydronephrosis Intractable nausea and vomiting due to above - Abdominal CT: Moderate left hydronephrosis with 2 mm obstructing calculus within the left distal ureter. -urology consult appreciated, left PNT placement per IR service, expulsive measures. -higher consulted for left PCN tube placement - Renal ultrasound: Mild right and moderate hydronephrosis - Roach catheter placement - Urology has been consulted - IV fluids - NS maintenance 75 cc/hr - Tamsulosin 0.4 mg p.o. 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 Full code. Plan discussed with: Patient, Other (RM) Date of Service: Apr 13, 2025 Billing Provider: MAGUE CHUNG MD Common Visit Codes: [id number] INP/OBS CARE(HIGH) GAUTAM RANGEL RESIDENT Apr 13, 2025 14:30 MAGUE CHUNG MD Apr 13, 2025 23:56
--- NOTE | 2025-04-13 15:00 | DVH ---
PROCEDURE: Right NEPHROSTOMY TUBE PLACEMENT HISTORY: Left flank pain. UTI. Obstructing distal ureteral stone. OPERATORS: Daniel Manzo DOCUMENTATION: Informed consent was obtained and a procedural time out was performed. SEDATION: Moderate sedation was utilized during the procedure. The patient received benzodiazepines a nd opioids, the dosing of which was documented in the patient s permanent medical record. Pre-sedatio n history and evaluation revealed no contraindications to sedation. The patient s level of consciousn ess and physiologic status was monitored continuously by the physician and nursing staff throughout t he procedure. Total intra-service moderate sedation time was 50 minutes. FLUORO TIME: 11.1 min Dose: 1830 TECHNIQUE: The skin over the patient's back/flank was sterilely prepped, draped, and infiltrated with 1% lidocaine. A 22-gauge INRAD needle was used to access a lower pole renal calyx under real-time ul trasound guidance with an image archived in the PACS. There was a small amount of clear fluid return . 2 cc of contrast was injected through the needle which opacified a parapelvic cyst. Severeal other similar structures were targeted and 1-2 cc of contrast was injected with no opacification of collec ting system. Next, the decision was made to advance the needle into the renal pelvis. 5 cc of contras t was injected into the collecting system after clear return of urine which demonstarted no significa nt hydronephrosis but no passage of contrast into the urinary bladder. Then, a second access was obta ined through lower pole calyx under fluoroscopy guidance without difficulty. Dilute contrast was inje cted to confirm positioning. A micropuncture set was used to gain definitive access to the calyx. A g uidewire was coiled in the renal pelvis and an 8 polish pigtail was placed under fluoroscopy. The cat heter was injected with contrast and a spot radiograph obtained. The catheter was sutured and stat lo cked in place and connected to gravity drainage. FINDINGS: There is no significant calyceal dilatation. mild dilatation of the renal pelvis with no p assage of contrast into the bladder. The final images demonstrate 8F pigtail catheter to be in satisf actory position. No immediate complications were encountered. IMPRESSION: 1. SUCCESSFUL 8F LEFT NEPHROSTOMY TUBE PLACEMENT.
--- NOTE | 2025-04-13 15:01 | DVH ---
PROCEDURE: LEFT NEPHROSTOMY TUBE PLACEMENT HISTORY: Left flank pain. UTI. Obstructing distal ureteral stone. OPERATORS: Daniel Manzo DOCUMENTATION: Informed consent was obtained and a procedural time out was performed. SEDATION: Moderate sedation was utilized during the procedure. The patient received benzodiazepines a nd opioids, the dosing of which was documented in the patient s permanent medical record. Pre-sedatio n history and evaluation revealed no contraindications to sedation. The patient s level of consciousn ess and physiologic status was monitored continuously by the physician and nursing staff throughout t he procedure. Total intra-service moderate sedation time was 50 minutes. FLUORO TIME: 11.1 min Dose: 1830 TECHNIQUE: The skin over the patient's back/flank was sterilely prepped, draped, and infiltrated with 1% lidocaine. A 22-gauge INRAD needle was used to access a lower pole renal calyx under real-time ul trasound guidance with an image archived in the PACS. There was a small amount of clear fluid return . 2 cc of contrast was injected through the needle which opacified a parapelvic cyst. Severeal other similar structures were targeted and 1-2 cc of contrast was injected with no opacification of collec ting system. Next, the decision was made to advance the needle into the renal pelvis. 5 cc of contras t was injected into the collecting system after clear return of urine which demonstarted no significa nt hydronephrosis but no passage of contrast into the urinary bladder. Then, a second access was obta ined through lower pole calyx under fluoroscopy guidance without difficulty. Dilute contrast was inje cted to confirm positioning. A micropuncture set was used to gain definitive access to the calyx. A g uidewire was coiled in the renal pelvis and an 8 ecuad[place] pigtail was placed under fluoroscopy. The cat heter was injected with contrast and a spot radiograph obtained. The catheter was sutured and stat lo cked in place and connected to gravity drainage. FINDINGS: Parapelvic cysts mimicking moderate hydronephrosis on CT. There is no significant calyceal dilatation. Mild dilatation of the renal pelvis with no passage of contrast into the bladder. The fi nal images demonstrate 8F pigtail catheter to be in satisfactory position. No immediate complications were encountered. IMPRESSION: 1. SUCCESSFUL 8F LEFT NEPHROSTOMY TUBE PLACEMENT.
[2025-04-13] MEDS: TAMSULOSIN HYDROCHLORIDE 0.4 MG CAP PO SCH (19:01)
[2025-04-14 01:00] VITALS: BP 112/69; PULSE 77; RESP 17; TEMP 99.2; O2SAT 96
[2025-04-14 05:00] VITALS: BP 109/69; PULSE 75; RESP 17; TEMP 97.4; O2SAT 97
[2025-04-14 06:19] LABS: Chloride 105 mmol/L (98-107); Potassium 4.0 mmol/L (3.5-5.1); Sodium 139 mmol/L (136-145)
[2025-04-14 06:20] LABS: Anion Gap 9 (5-15); Carbon Dioxide 25 mmol/L (20-31)
[2025-04-14 06:24] LABS: Calcium 8.5 mg/dL (8.7-10.4)
[2025-04-14 06:25] LABS: BUN/Creatinine Ratio 16.0 (10.0-20.0); Blood Urea Nitrogen 15 mg/dL (9-23); Hematocrit 36.6 % (41.0-53.0); Hemoglobin 12.5 g/dL (13.5-17.5); Mean Corpuscular Hemoglobin 29.1 pg (28.0-32.0); Mean Corpuscular Volume 85.5 fL (80.0-100.0); Nucleated Red Blood Cells % 0.0 %
[2025-04-14 06:31] LABS: Glucose 107 mg/dL (74-106)
[2025-04-14 08:00] VITALS: PULSE 75; RESP 20; O2SAT 98
[2025-04-14 08:07] LABS: Prostate Specific Antigen 0.3 ng/mL (0.0-4.0)
[2025-04-14 09:00] VITALS: BP 110/70; PULSE 75; RESP 18; TEMP 98.1; O2SAT 97
[2025-04-14] MEDS ORDERED: CEFP200T15 PO (12:01)
[2025-04-14] MEDS ORDERED: TAMS-35 PO (12:01)
--- NOTE | 2025-04-14 12:38 | DVHDSRES ---
Discharge Summary Date of Admission Resident Creating Document: AKOSUA LUJAN RESIDENT Apr 12, 2025 at 21:20 Date of Discharge: Apr 14, 2025 Labs/Diagnostic Data: Laboratory Results Test 04/14/25 05:33 04/13/25 09:36 04/13/25 06:42 04/13/25 05:22 White Blood Count 10.1 10^3/uL (4.4-10.8) Red Blood Count 4.28 10^6/uL (4.5-5.90) Hemoglobin 12.5 g/dL (13.5-17.5) Hematocrit 36.6 % (41.0-53.0) Mean Corpuscular Volume 85.5 fL (80.0-100.0) Mean Corpuscular Hemoglobin 29.1 pg (28.0-32.0) Mean Corpuscular Hemoglobin Concent 34.1 g/dL (32.0-36.0) Red Cell Distribution Width 13.2 % (11.8-14.3) Platelet Count 206 10^3/uL (140-450) Mean Platelet Volume 8.3 fL (6.9-10.8) Neutrophils (%) (Auto) 71.4 % (37.0-80.0) Lymphocytes (%) (Auto) 15.4 % (10.0-50.0) Monocytes (%) (Auto) 12.6 % (0.0-12.0) Eosinophils (%) (Auto) 0.3 % (0.0-7.0) Basophils (%) (Auto) 0.3 % (0.0-2.0) Neutrophils # (Auto) 7.2 10 ^3/uL (1.6-8.6) Lymphocytes # (Auto) 1.6 10 ^3/uL (0.4-5.4) Monocytes # (Auto) 1.3 10 ^3/uL (0-1.3) Eosinophils # (Auto) 0 10 ^3/uL (0-0.8) Basophils # (Auto) 0 10 ^3/uL (0-0.2) Nucleated Red Blood Cells 0.0 % Sodium Level 139 mmol/L (136-145) Potassium Level 4.0 mmol/L (3.5-5.1) Chloride Level 105 mmol/L (98-107) Carbon Dioxide Level 25 mmol/L (20-31) Anion Gap 9 (5-15) Blood Urea Nitrogen 15 mg/dL (9-23) Creatinine 0.94 mg/dL (0.700-1.30) Glomerular Filtration Rate Calc 95 mL/min (>90) BUN/Creatinine Ratio 16.0 (10.0-20.0) Serum Glucose 107 mg/dL (74-106) Calcium Level 8.5 mg/dL (8.7-10.4) Urine Opiates Screen Neg (NEGATIVE) Urine Fentanyl Screen Neg (NEGATIVE) Urine Barbiturates Screen Neg (NEGATIVE) Urine Phencyclidine Screen Neg (NEGATIVE) Urine Amphetamines Screen Neg (NEGATIVE) Urine Benzodiazepines Screen Neg (NEGATIVE) Urine Cocaine Screen Neg (NEGATIVE) Urine Cannabinoids Screen Neg (NEGATIVE) Lactic Acid Level 0.9 mmol/L (0.4-2.0) Total Bilirubin 0.6 mg/dL (0.2-1.0) Aspartate Amino Transferase (AST) 31 U/L (13-40) Alanine Aminotransferase (ALT) 40 U/L (7-40) Alkaline Phosphatase 90 U/L (46-116) Total Protein 7.3 g/dL (5.7-8.2) Albumin 4.6 g/dL (3.2-4.8) Prostate Specific Antigen Total 0.3 ng/mL (0.0-4.0) Test 04/12/25 21:57 04/12/25 15:00 04/12/25 14:43 Prothrombin Time 11.9 sec (9.3-11.8) Prothrombin Time INR 1.14 (0.9-1.15) Activated Partial Thromboplast Time 25.6 SEC (24.5-34.5) Urine Color Light-yellow (Yellow) Urine Clarity Clear (Clear) Urine pH 6.5 (5.0-9.0) Urine Specific Holden 1.015 (1.001-1.035) Urine Protein Negative (Negative) Urine Ketones 2+ (Negative) Urine Blood 1+ /uL (Negative) Urine Nitrite Negative (Negative) Urine Bilirubin Negative (Negative) Urine Urobilinogen Normal mg/dL (Negative) Urine Leukocyte Esterase Negative /uL (Negative) Urine RBC 39 /hpf (0 - 3) Urine Microscopic WBC < 1 /HPF (0-3) Urine Squamous Epithelial Cells None seen /hpf (<5) Urine Bacteria None seen /hpf (None Seen) Urine Glucose Trace mg/dL (Normal) Hemoglobin A1c 5.4 % A1C (<5.7) Phosphorus Level 2.7 mg/dL (2.4-5.1) Magnesium Level 2.0 mg/dL (1.6-2.6) Direct Bilirubin 0.2 mg/dL (<0.3) Vitamin B12 Level 651 pg/mL (211-911) Vitamin D 25-Hydroxy 30.4 ng/mL (30.0-100) Thyroid Stimulating Hormone (TSH) 2.94 uIU/mL (0.55-4.78) Other Laboratory Tests 04/14/25 05:33 Brief Hx & Hospital Course: Mr. Rasmussen is a 55-year-old male with no prior medical or surgical history who presented to the emergency department with sudden onset of sharp left lower quadrant abdominal pain radiating to the left groin. The pain was severe, rated 10/10, and accompanied by chills, diaphoresis, nausea, and vomiting. He denied fever, chest pain, palpitations, hematuria, and dysuria. On arrival, he was afebrile, hypertensive, and in moderate distress. Laboratory tests revealed leukocytosis with neutrophilia, hypokalemia, elevated creatinine, and hyperglycemia. Urinalysis showed microscopic hematuria. Abdominal CT demonstrated moderate left hydronephrosis with a 2 mm obstructing calculus in the left distal ureter. He was started on IV fluids, IV Zofran, and IV antibiotics and admitted for further management. During hospitalization, Mr. Rasmussen was diagnosed with sepsis secondary to a complicated urinary tract infection likely caused by ureterolithiasis. Blood and urine cultures were obtained, and he was treated with IV Ceftriaxone and fluid resuscitation. His lactic acid levels increased from 2.7 to 2.9. Imaging confirmed bilateral hydronephrosis and obstructing ureterolithiasis, prompting urology and interventional radiology consultations for left percutaneous nephrostomy tube placement. A Roach catheter was inserted, and the patient was kept NPO pending further evaluation. Pain and nausea were managed with IV Dilaudid and Zofran, and Tamsulosin was initiated for stone passage. Acute kidney injury on chronic kidney disease was suspected due to post-obstructive nephropathy and managed with IV fluids. Hypertensive urgency was treated with IV Hydralazine and oral Lisinopril. Hypokalemia was corrected with IV potassium. The patient was counseled on lifestyle modifications for obesity. Supportive measures included DVT prophylaxis with SCDs and GI prophylaxis with IV Protonix. The case was discussed with Dr. Chung. On evaluation today, he states he is well, pain is manageable. His vitals have remained stable for discharge home, follow up visit in discharge clinic. All medications and recommendations were thoroughly explained and the patient states he understands and agrees. Detailed discussion held with patient at bedside were all questions were answered and concerns were addressed. Exam General: The patient alert and oriented in person place and time. Patient following commands, patient in pain and vomiting HEENT: Normocephalic, atraumatic, normal reactive pupils, EOM intact, pink conjunctiva, pink dry mucous membrane Respiratory/pulmonary: Bilateral chest expansion, no pain on palpation of chest wall, clear lungs bilaterally, vesicular murmurs present in almost all lung mo, no associated crackles or wheezes. Cardiovascular: Normal RRR, normal S1 and S2, no murmurs Abdomen: Obese, Abdomen nondistended, normal bowel sounds, soft, pain on palpation of lower left quadrant, no CVA tenderness, no palpable masses. Extremities: No deformities, there is no peripheral edema present at the lower extremities, normal pulses Skin: No rashes or pruritus, there is no sacral edema present at this time. Neurological: Intact cranial nerves with no focal neurologic deficits Operations or Procedures PATIENT: ANA LILIA RASMUSSEN ACCT: [id number] UNIT: [id number] : 1970 LOC: OVERFLOW ROOM / BED: [address] [place] [address] AGE / SEX: 55 / M ADM STATUS: ADM IN SERVICE 1214 ORDERING PHYSICIAN: HILARIA MANZO MD PROCEDURE(s): PERNEPH - PERCUTANEOUS NEPHROSTOMY REASON: NEPHROSTOMY ORDER NUMBER(s): [id number], ACCESSION NUMBER(s): [id number] PROCEDURE: Right NEPHROSTOMY TUBE PLACEMENT HISTORY: Left flank pain. UTI. Obstructing distal ureteral stone. OPERATORS: Daniel Manzo DOCUMENTATION: Informed consent was obtained and a procedural time out was performed. SEDATION: Moderate sedation was utilized during the procedure. The patient received benzodiazepines and opioids, the dosing of which was documented in the patient s permanent medical record. Pre-sedation history and evaluation revealed no contraindications to sedation. The patient s level of consciousness and physiologic status was monitored continuously by the physician and nursing staff throughout the procedure. Total intra-service moderate sedation time was 50 minutes. FLUORO TIME: 11.1 min Dose: 1830 TECHNIQUE: The skin over the patient's back/flank was sterilely prepped, draped, and infiltrated with 1% lidocaine. A 22-gauge INRAD needle was used to access a lower pole renal calyx under real-time ultrasound guidance with an image archived in the PACS. There was a small amount of clear fluid return. 2 cc of contrast was injected through the needle which opacified a parapelvic cyst. Severeal other similar structures were targeted and 1-2 cc of contrast was injected with no opacification of collecting system. Next, the decision was made to advance the needle into the renal pelvis. 5 cc of contrast was injected into the collecting system after clear return of urine which demonstarted no significant hydronephrosis but no passage of contrast into the urinary bladder. Then, a second access was obtained through lower pole calyx under fluoroscopy guidance without difficulty. Dilute contrast was injected to confirm positioning. A micropuncture set was used to gain definitive access to the calyx. A guidewire was coiled in the renal pelvis and an 8 sinhala pigtail was placed under fluoroscopy. The catheter was injected with contrast and a spot radiograph obtained. The catheter was sutured and stat locked in place and connected to gravity drainage. FINDINGS: There is no significant calyceal dilatation. mild dilatation of the renal pelvis with no passage of contrast into the bladder. The final images demonstrate 8F pigtail catheter to be in satisfactory position. No immediate complications were encountered. IMPRESSION: 1. SUCCESSFUL 8F LEFT NEPHROSTOMY TUBE PLACEMENT. PATIENT: ANA LILIA RASMUSSEN ACCT: [id number] UNIT: [id number] : 1970 LOC: OVERFLOW ROOM / BED: [address] [place] [address] / AGE / SEX: 55 / M ADM STATUS: ADM IN SERVICE 1214 ORDERING PHYSICIAN: HILARIA MANZO MD PROCEDURE(s): THOUS - US GUIDANCE FOR NEEDLE PLACEME REASON: NEPHROSTOMY ORDER NUMBER(s): [id number], ACCESSION NUMBER(s): [id number] PROCEDURE: LEFT NEPHROSTOMY TUBE PLACEMENT HISTORY: Left flank pain. UTI. Obstructing distal ureteral stone. OPERATORS: Daniel Manzo DOCUMENTATION: Informed consent was obtained and a procedural time out was performed. SEDATION: Moderate sedation was utilized during the procedure. The patient received benzodiazepines and opioids, the dosing of which was documented in the patient s permanent medical record. Pre-sedation history and evaluation revealed no contraindications to sedation. The patient s level of consciousness and physiologic status was monitored continuously by the physician and nursing staff throughout the procedure. Total intra-service moderate sedation time was 50 minutes. FLUORO TIME: 11.1 min Dose: 1830 TECHNIQUE: The skin over the patient's back/flank was sterilely prepped, draped, and infiltrated with 1% lidocaine. A 22-gauge INRAD needle was used to access a lower pole renal calyx under real-time ultrasound guidance with an image archived in the PACS. There was a small amount of clear fluid return. 2 cc of contrast was injected through the needle which opacified a parapelvic cyst. Severeal other similar structures were targeted and 1-2 cc of contrast was injected with no opacification of collecting system. Next, the decision was made to advance the needle into the renal pelvis. 5 cc of contrast was injected into the collecting system after clear return of urine which demonstarted no significant hydronephrosis but no passage of contrast into the urinary bladder. Then, a second access was obtained through lower pole calyx under fluoroscopy guidance without difficulty. Dilute contrast was injected to confirm positioning. A micropuncture set was used to gain definitive access to the calyx. A guidewire was coiled in the renal pelvis and an 8 sinhala pigtail was placed under fluoroscopy. The catheter was injected with contrast and a spot radiograph obtained. The catheter was sutured and stat locked in place and connected to gravity drainage. FINDINGS: Parapelvic cysts mimicking moderate hydronephrosis on CT. There is no significant calyceal dilatation. Mild dilatation of the renal pelvis with no passage of contrast into the bladder. The final images demonstrate 8F pigtail catheter to be in satisfactory position. No immediate complications were encountered. IMPRESSION: 1. SUCCESSFUL 8F LEFT NEPHROSTOMY TUBE PLACEMENT. --- PATIENT: ANA LILIA RASMUSSEN ACCT: [id number] UNIT: [id number] : 1970 LOC: OVERFLOW ROOM [facility] A AGE / SEX: 55 / M ADM STATUS: ADM IN SERVICE ORDERING PHYSICIAN: OMID BARNARD PROCEDURE(s): KIDUS - KIDNEY REASON: L Hydronephrosis ORDER NUMBER(s): [id number], ACCESSION NUMBER(s): [id number] RENAL ULTRASOUND CLINICAL HISTORY: L Hydronephrosis TECHNIQUE: Multiple grayscale ultrasound images were obtained through the kidneys and urinary bladder. COMPARISON: CT abdomen and pelvis from same day FINDINGS: Right kidney: Measures 10.6 cm. Mild hydronephrosis. Left kidney: Measures 12.2 cm. Moderate hydronephrosis. Urinary bladder: Unremarkable. Prevoid volume is 67.3 ML. The right ureteral jet is seen. The left ureteral jet was not visualized. IMPRESSION: Mild right and moderate left hydronephrosis. --- PATIENT: ANA LILIA RASMUSSEN ACCT: [id number] UNIT: [id number] : 1970 LOC: ER ROOM / BED: / AGE / SEX: 55 / M ADM STATUS: REG ER SERVICE 1418 ORDERING PHYSICIAN: THUAN FLOWERS MD PROCEDURE(s): ABPL - CT AB PEL WO CON-NO ORAL OR IV REASON: llqpain ORDER NUMBER(s): [id number], ACCESSION NUMBER(s): [id number] Exam: CT CT AB PEL WO CON-NO ORAL OR IV History: llqpain Comparison Study: None TECHNIQUE: Multidetector CT of the abdomen AND PELVIS without IV contrast. Axial, coronal and sagittal multiplanar reformats were obtained from the axial data set by the technologist. Radiation Dose Information: CT Dose: CTDI volume is 15.2 mGy. Dose-length product is 907.59 mGy*cm FINDINGS: Bibasilar atelectasis. Partially visualized heart is unremarkable. Liver, spleen, gallbladder, pancreas and adrenal glands are unremarkable. Right renal lower pole parapelvic cyst measuring up to 2.7 cm. Moderate left Haskell nephrosis with mild asymmetric left-sided perirenal and periureteral fat stranding and 2 mm obstructing calculus over the left distal ureter. Mild wall thickening of the mildly distended urinary bladder which may be due to inadequate distention. Prostate is unremarkable. Mild gaseous distention of the distal esophagus. The stomach is unremarkable. Small bowel loops unremarkable. Appendix is unremarkable. Mild wall thickening of the transverse colon. Sigmoid diverticulosis without diverticulitis. Mild rectal wall thickening. No evidence of intraperitoneal free air or free fluid. No evidence of aortic aneurysm or. No significant lymphadenopathy. Small fat containing bilateral inguinal hernias. Tiny fat containing umbilical hernia. The soft tissues unremarkable. No evidence of acute osseous abnormalities. IMPRESSION: Moderate left hydronephrosis with 2 mm obstructing calculus within the left distal ureter. Mild wall thickening of the urinary bladder which may be due to inadequate distention. Correlation with urinalysis is recommended to exclude cystitis. Mild wall thickening of the transverse colon and rectum which may be due to inadequate distention /mild colitis. Additional findings as above. --- PATIENT: ANA LILIA RASMUSSEN ACCT: [id number] : 1970 LOC: ER ROOM / BED: / AGE / SEX: 55 / M ADM STATUS: REG ER SERVICE UNIT: [id number] ORDERING PHYSICIAN: THUAN FLOWERS MD PROCEDURE(s): EKG - ELECTROCARDIGRAM ORDER NUMBER(s): [id number], ACCESSION NUMBER(s): [id number] [facility] Test Date: 2025-04-12 Test Time: 13:58:32 Pat Name: ANA LILIA RASMUSSEN Department: [facility] ED Patient ID: [id number] Room: Gender: M Case Manager: ER : 1970 Requested By: THUAN FLOWERS Order Number: [id number] Reading MD: Measurements Intervals [place] Rate: 60 P: 0 OK: 0 QRS: 52 QRSD: 98 T: 16 QT: 475 QTc: 475 Interpretive Statements Atrial fibrillation Borderline repolarization abnormality Minimal ST elevation, lateral leads Please click the below link to view image of tracing. Condition at Discharge: Stable Final Diagnosis/Problems List Sepsis secondary to Complicated UTI likely secondary to ureterolithiasis Intractable abdominal pain due to Obstructing ureterolithiasis with bilateral hydronephrosis Intractable nausea and vomiting due to above CAM on CKD likely due to post obstructive nephropathy Hypertensive Urgency, resolved Hypokalemia, 3.1 Obesity, BMI 30.5 kg/m2 Discharge Disposition: Home Discharge Instruct/Medications Diet: Regular Activity: No Restrictions, As Tolerated Follow Up/Referral: Follow up with PCP within 1-2 weeks Medications: continue home medications Scheduled Cefpodoxime Proxetil (Cefpodoxime Proxetil), 1 TAB PO BID Tamsulosin Hcl (Flomax), 0.4 MG PO QPM Discharge Statement: "Patient was advised to return to the ER or call 911 if any headaches, dizziness, shortness of breath, chest pain, abdominal pain, bleeding, fevers, or worsening of medical condition. Patient was counseled about treatment plan, medications, possible side effects, patientverbalized understanding. All questions were answered to the best of my ability. This discharge took greater then 30 minutes in planning, reviewing documentation, counseling the patient, and discussing with other team members." ASSESSMENT ASSESSMENT Assessment Sepsis secondary to Complicated UTI likely secondary to ureterolithiasis Intractable abdominal pain due to Obstructing ureterolithiasis with bilateral hydronephrosis Intractable nausea and vomiting due to above CAM on CKD likely due to post obstructive nephropathy Hypertensive Urgency, resolved Hypokalemia, 3.1 Obesity, BMI 30.5 kg/m2 Date of Service: Apr 16, 2025 Billing Provider: MAGUE CHUNG MD Common Visit Codes: 33600-OGW/OBS DISCH DAY >30min AKOSUA LUJAN Apr 14, 2025 12:38 MAGUE CHUNG MD Apr 16, 2025 02:26
[2025-04-14 13:00] VITALS: BP 129/85; PULSE 68; RESP 17; TEMP 97.5; O2SAT 95
[2025-04-14 15:01] VITALS: BP 129/85; PULSE 68; RESP 17; TEMP 97.5; O2SAT 95
== END 2025-04-14 16:35 | disposition home or self-care (01) | DRG 720 ==
LOC: ER 13:43 → OVERFLOW 21:20 → WEST WING 04-13 16:13
PROVIDERS: ADMIT Internal Medicine; ATTEND Internal Medicine
PROC: 0T9430Z Drainage of Left Kidney Pelvis with Drainage Device, Percutaneous Approach (ICD-10-PCS; principal; 2025-04-13)
PROC: BT12ZZZ Fluoroscopy of Left Kidney (ICD-10-PCS; 2025-04-13)
DX: A41.9 Sepsis, unspecified organism (principal); N17.0 Acute kidney failure with tubular necrosis; I16.0 Hypertensive urgency; Z68.30 Body mass index [BMI] 30.0-30.9, adult; K52.9 Noninfective gastroenteritis and colitis, unspecified; E87.6 Hypokalemia; E66.9 Obesity, unspecified; R79.89 Other specified abnormal findings of blood chemistry; N13.6 Pyonephrosis
CPT/HCPCS: 36415; 50435; 74176; 74425; 76775; 76942; 80048; 80053; 80076; 80307; 81001; 82306; 82607; 83036; 83605; 83735; 84100; 84154; 84443; 85025; 85610; 85730; 87040; 87086; 93005; 96361; 96374; 96375; 99152; C1894; G0378; J2003; J2250; J2405; Q9967

== ENCOUNTER 2025-06-25 07:34 | Outpatient (CLI) | payer MEDICAID, OTHER ==
[~2025-06-25 07:34] MED LIST: CEFP200T15 PO; TAMS-35 PO
== END 2025-06-25 17:00 | disposition home or self-care (01) ==
LOC: XYW 07:34
PROVIDERS: ATTEND Internal Medicine
DX: I10 Essential (primary) hypertension (principal)
CPT/HCPCS: 93306